=== PATIENT | female | born 1965 | race Caucasian/White ===

== ENCOUNTER → 2024-05-11 | Outpatient (CLI) | payer OTHER, SELFPAY ==
--- NOTE | 2024-05-11 08:30 | XR_ITS ---
Examination: Abdomen sonogram, Limited Date and time of exam: May 11, 2024 0800 hours INDICATIONS: Morbid obesity, preop gastric bypass Technique: Real-time raphael scale transabdominal sonographic images of the upper abdomen obtained. Findings: Multiple gallstones Normal gallbladder wall 0.2 cm Common bile duct 0.3 cm Pancreatic head 3.1 cm Hepatomegaly 19.1 cm fatty infiltration no focal liver lesions Normal hepatopedal portal venous flow Patent IVC IMPRESSION: Cholelithiasis, negative for cholecystitis Moderate hepatomegaly, fatty liver
--- NOTE | 2024-05-11 09:00 | XR_ITS ---
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 nonobstructive bowel gas pattern Patient swallowed thin barium, 20 spot films obtained of the esophagus stomach and small bowel Fluoroscopy 0.17 minutes Primary peristaltic esophageal waves Secondary and tertiary esophageal contractions Moderate intermittent gastroesophageal reflux Large esophageal hernia Tiny gastric remnant with immediate emptying into the jejunum, no anastomotic or gastric remnant ulcer Small bowel loops unremarkable IMPRESSION: Significant esophageal dysmotility Moderate intermittent gastroesophageal reflux, no significant stricture at the gastroesophageal junction Large esophageal hernia Tiny gastric remnant with no gastric or anastomotic ulcer
== END | disposition home or self-care (01) ==
PROVIDERS: PCP Student in an Organized Health Care Education/Training Program; Referring Provider Student in an Organized Health Care Education/Training Program; Visit Provider Student in an Organized Health Care Education/Training Program
DX: K80.20 Calculus of gallbladder without cholecystitis without obstruction (principal); K76.0 Fatty (change of) liver, not elsewhere classified; K21.00 Gastro-esophageal reflux disease with esophagitis, without bleeding; K44.9 Diaphragmatic hernia without obstruction or gangrene; K31.89 Other diseases of stomach and duodenum
CPT/HCPCS: 74240; 76705

== ENCOUNTER → 2024-12-16 | Outpatient (CLI) | payer OTHER, SELFPAY ==
--- NOTE | 2024-12-16 | XR_ITS ---
Examination: Cervical spine 3 views Technique one AP lateral coned AP odontoid cervical spine 3 views Date and time: December 16, 2024 1212 hours INDICATIONS: Neck pain beginning 2 weeks ago. FINDINGS: Adequate alignment cervical vertebral bodies No cervical fracture Early degenerative disc disease C5-C6 Intact odontoid IMPRESSION: Early degenerative disc disease C5-C6
--- NOTE | 2024-12-16 | XR_ITS ---
Examination: Thoracic spine 3 views Technique one AP lateral coned upper thoracic spine 3 views Date and time: December 16, 2024 1220 hours INDICATIONS: Back pain beginning 3 weeks ago. FINDINGS: Prominent osteopenia. No acute thoracic fracture Mild diffuse thoracic disc narrowing IMPRESSION: Mild diffuse thoracic degenerative disc disease
== END | disposition home or self-care (01) ==
PROVIDERS: PCP Registered Nurse Community Health; Referring Provider Nurse Practitioner Family; Visit Provider Nurse Practitioner Family
DX: M50.322 Other cervical disc degeneration at C5-C6 level (principal); M51.34 Other intervertebral disc degeneration, thoracic region
CPT/HCPCS: 72040; 72072